=== PATIENT | male | born 1980 | race Two or more races ===

== ENCOUNTER 2017-09-23 08:41 | Inpatient (IN) | payer OTHER ==
[~2017-09-23] VITALS: Ht 180.3 cm; Wt 63.5 kg
[2017-09-23 10:04] LABS: BASOPHILS % 0.3 % (0.0-2.0); EOSINOPHILS % 0.4 % (0.0-5.0); HEMATOCRIT. 42.6 % (42.0-52.0); HEMOGLOBIN. 14.5 g/dL (14.0-18.0); LYMPHOCYTES % 19.6 % (20.0-50.0); MEAN CORPUSCULAR HEMOGLOBIN 31.9 pg (28.0-32.0); MEAN CORPUSCULAR VOLUME 93.7 fL (80.0-94.0); MEAN PLATELET VOLUME 8.5 fl (7.4-10.4); MONOCYTES % 5.5 % (2.0-8.0); NEUTROPHILS % 74.2 % (40.0-76.0); PLATELET 233 x1000/uL (130-400); RED BLOOD CELL COUNT 4.54 mill/uL (4.7-6.1); RED CELL DISTRIBUTION WIDTH 13.8 % (11.6-14.6)
[2017-09-23 10:10] LABS: CHLORIDE 106 mEq/L (98-107)
[2017-09-23 10:13] LABS: PARTIAL THROMBOPLASTIN TIME 29.7 sec (23.4-31.0)
[2017-09-23 10:16] LABS: ETHANOL BLOOD < 10 mg/dL
[2017-09-23] MEDS ORDERED: LABETALOL 5MG/ML SYR 20 MG/4 ML SYRINGE IV ONE (11:00)
[2017-09-23] MEDS ORDERED: ASPIRIN 325MG TABLET PO ONE (12:15)
[2017-09-23 12:16] LABS: CLARITY URINE CLEAR (CLEAR); COLOR URINE YELLOW (YELLOW); KETONES URINE 1+ (NEGATIVE); LEUKOCYTE ESTERASE URINE NEGATIVE (NEGATIVE); NITRITE URINE NEGATIVE (NEGATIVE); OCCULT BLOOD URINE NEGATIVE (NEGATIVE); PROTEIN URINE NEGATIVE (NEGATIVE); SPECIFIC GRAVITY URINE 1.014 (1.005-1.030); UROBILINOGEN URINE 0.2 E.U./dL (0.2-1.0)
[2017-09-23 12:45] LABS: *AMPHETAMINES SCREEN URINE NEGATIVE (NEGATIVE); *BARBITURATES SCREEN URINE NEGATIVE (NEGATIVE); *BENZODIAZEPINES SCREEN URINE NEGATIVE (NEGATIVE); *COCAINE SCREEN URINE NEGATIVE (NEGATIVE); METHADONE URINE SCREEN NEGATIVE (NEGATIVE); OPIATES URINE SCREEN NEGATIVE (NEGATIVE)
[2017-09-23 12:46] LABS: CANNABINOID URINE SCREEN NEGATIVE (NEGATIVE); PHENCYCLIDINE URINE SCREEN NEGATIVE (NEGATIVE)
[2017-09-23 13:30] VITALS: BP 210/133
[2017-09-23] MEDS ORDERED: DOCUSATE SODIUM 100MG CAPSULE PO PRN (13:30)
[2017-09-23] MEDS ORDERED: ACETAMINOPHEN 650MG/20.3ML UDC GT PRN (13:30)
[2017-09-23] MEDS ORDERED: ONDANSETRON HCL 4MG/2ML VIAL IV PRN (13:30)
[2017-09-23] MEDS ORDERED: HYDROCODONE/ACETAMINOPHEN 5/325MG TABLET PO PRN (13:30)
[2017-09-23] MEDS ORDERED: DIPHENHYDRAMINE 50MG/ML VIAL IV PRN (13:30)
[2017-09-23] MEDS ORDERED: NA PHOS,M-B/NA PHOS,DI-BA ENEMA 118ML PR PRN (13:30)
[2017-09-23] MEDS ORDERED: MAGNESIUM/ALUMINUM HYDROXIDE/SIMETHICONE 30ML UDC PO PRN (13:30)
[2017-09-23] MEDS ORDERED: CLONIDINE 0.1MG TABLET PO PRN (13:30)
[2017-09-23] MEDS ORDERED: ACETAMINOPHEN 325MG TABLET PO PRN (13:30)
[2017-09-23] MEDS ORDERED: GUAIFENESIN 200MG/10ML SUGAR FREE UDC PO PRN (13:30)
[2017-09-23] MEDS ORDERED: AMLODIPINE 10MG TABLET PO ONE (13:30)
[2017-09-23] MEDS ORDERED: AMLODIPINE 10MG TABLET PO SCH (13:30)
[2017-09-23] MEDS ORDERED: ACETAMINOPHEN 650MG SUPP PR PRN (13:30)
[2017-09-23] MEDS: BENAZEPRIL 10MG TABLET PO SCH (13:55)
[2017-09-23] MEDS: ENOXAPARIN 40MG/0.4ML SYR SUBCUT SCH (13:56)
[2017-09-23 15:15] VITALS: BP 169/121
[2017-09-23] MEDS: CLONIDINE 0.1MG TABLET PO PRN (15:15)
[2017-09-23] MEDS: HYDRALAZINE HCL 50MG TABLET PO SCH ×2 (17:03→20:33)
[2017-09-23 20:00] VITALS: BP 151/102
[2017-09-23] MEDS ORDERED: HYDRALAZINE 20MG/ML VIAL IV PRN (21:30)
[2017-09-24] VITALS: BP 145/101
[2017-09-24 04:00] VITALS: BP 140/99
[2017-09-24] MEDS: HYDRALAZINE HCL 50MG TABLET PO SCH (05:10)
[2017-09-24] MEDS: CLONIDINE 0.1MG TABLET PO PRN (05:11)
[2017-09-24 08:00] VITALS: BP 142/101
[2017-09-24] MEDS ORDERED: AMLODIPINE 5MG TABLET PO SCH ×2 (09:00→17:00)
[2017-09-24] MEDS: BENAZEPRIL 10MG TABLET PO SCH (09:16)
[2017-09-24] MEDS: ENOXAPARIN 40MG/0.4ML SYR SUBCUT SCH (09:16)
[2017-09-24] MEDS ORDERED: ASPIRIN 81MG TABLET PO NR (10:45)
[2017-09-24 12:00] VITALS: BP 141/94
[2017-09-24 13:24] LABS: CHLORIDE 105 mEq/L (98-107)
[2017-09-24 13:31] LABS: LDL CHOLESTEROL 99 mg/dL (5-100)
[2017-09-24 13:32] LABS: HDL CHOLESTEROL 37 mg/dL (40-59)
[2017-09-24 13:33] LABS: BASOPHILS % 0.3 % (0.0-2.0); EOSINOPHILS % 0.7 % (0.0-5.0); HEMATOCRIT. 43.2 % (42.0-52.0); HEMOGLOBIN. 14.4 g/dL (14.0-18.0); LYMPHOCYTES % 26.6 % (20.0-50.0); MEAN CORPUSCULAR HEMOGLOBIN 31.5 pg (28.0-32.0); MEAN CORPUSCULAR VOLUME 94.3 fL (80.0-94.0); MEAN PLATELET VOLUME 8.7 fl (7.4-10.4); MONOCYTES % 7.4 % (2.0-8.0); PLATELET 249 x1000/uL (130-400); RED BLOOD CELL COUNT 4.58 mill/uL (4.7-6.1); RED CELL DISTRIBUTION WIDTH 13.7 % (11.6-14.6)
[2017-09-24] MEDS ORDERED: HYDRALAZINE HCL 50MG TABLET PO SCH (14:00)
[2017-09-24] MEDS ORDERED: AMLO5TAB88 PO (14:32)
[2017-09-24] MEDS ORDERED: LOT10 PO (14:32)
[2017-09-24] MEDS ORDERED: HYDR-4135 PO (14:32)
[2017-09-24] MEDS ORDERED: ASPI-1160 PO (14:32)
[2017-09-24 16:00] VITALS: BP 146/103
[2017-09-24 16:36] VITALS: BP 146/103
[2017-09-25] MEDS ORDERED: ASPIRIN 81MG TABLET PO SCH (09:00)
== END 2017-09-24 19:22 | disposition short-term general hospital (02) | DRG 65 ==
LOC: EDBD 08:41 → ER 09:17 → 7WST 12:15 → CANRESERV 12:24 → ENRESERV 12:24 → CANRESERV 12:31 → ENRESERV 12:31
PROVIDERS: ADMIT Family Medicine; ATTEND Family Medicine
DX: I63.9 Cerebral infarction, unspecified (principal); G81.91 Hemiplegia, unspecified affecting right dominant side; I10 Essential (primary) hypertension
CPT/HCPCS: 36415; 70450; 70551; 71045; 80053; 80061; 80305; 81003; 83036; 85025; 85610; 85730; 96374; 97162; 97166; 99285; G0482; J1650; J3490